=== PATIENT | male | born 1980 | race Caucasian/White ===

== ENCOUNTER 2022-12-16 21:48 | Emergency (ER) | payer OTHER, SELFPAY ==
[2022-12-16 22:02] VITALS: BP 114/78; PULSE 76; RESP 16; TEMP 36; O2SAT 97; BMI 23.0
[2022-12-16 22:44] LABS: COVID-19 Test Negative (Negative); IDNOW Serial# 08D9AD1C; IDNOW Serial# BCCEAD1C; Influenza A Negative (Negative); Influenza B2 Negative (Negative)
--- OUTSIDE RECORDS SUMMARY | 2022-12-16 23:51 | XMS_ITS | Continuity of Care Document ---
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 Name Role Phone Pcp-MD Chiara Blue Primary Care Provider MD Marcelo Magana Emergency Provider Chief Complaint and Reason for Visit Chief Complaint VOMITING NOT FEELING WELL Allergies, Adverse Reactions, Alerts Allergen Type Severity Reaction Last Updated Verified Status ibuprofen Allergy Abdominal Pain April 30, 2021 6:2 0pm Yes Active Social History Smoking Status Status Start Date End Date Date of Observa tion Tobacco smoking consumption unknown (finding) April 30, 2021 11:04pm Observation Status Observation Response Date of Response Lives With Family April 30 11:04pm Additional Data Assigned Sex Male Problems Active Problems Medical Problem Onset Date Status Viral illness Active Medications Medication Status Dose Units Route Directions Qty Days Start Ever e End Date Instructions Ondansetron Active 4 MG PO EVERY 8 HOURS 8 May 01, 2021 6:49am Procedures Procedure Date Performed Status XR chest 1V portable April 30, 2021 7:59pm completed Coronavirus COVID-19 ([facility]YSI) April 30, 2021 c ompleted Relevant Diagnostic Tests and/or Laboratory Data Laboratory Results Test Date/Time Result Interpretation Reference Range Result Comment Performing Site Add-On Test Request April 30, 2021 7:58pm Added test [address] [address] White Blood Count April 30, 2021 6:35pm 10.4 X10 3/uL 4.5-11.[address] [address] Red Blood Count April 30, 2021 6:35pm 4.83 X10 6/uL 4.00-5.[address] [address] Hemoglobin April 30, 2021 6:35pm 15.0 g/dl 13.0-17.[address] [address] Hematocrit April 30, 2021 6:35pm 43.3 % 37.5-50.[address] [address] Mean Corpuscular Volume April 30, 2021 6:35pm 89.6 fl 80.0-100.[address] [address] Mean Corpuscular Hemoglobin April 30, 2021 6:35pm 31.1 pg 27.0-34.[address] [address] Mean Corpuscular Hemoglobin Concent April 30, 2021 6:35pm 34.6 g/dl 31.0-36.[address] [address] Red Cell Distribution Width April 30, 2021 6:35pm 11.6 % 11.5-15.[address] [address] Platelet Count April 30, 2021 6:35pm 186 X10 3/uL 150-[address] [address] Immature Granulocyte % (Auto) April 30, 2021 6:35pm 0.2 % [address] [address] Neutrophils (%) (Auto) April 30, 2021 6:35pm 92.2 % [address] [address] Lymphocytes (%) (Auto) April 30, 2021 6:35pm 4.2 % [address] [address] Monocytes (%) (Auto) April 30, 2021 6:35pm 3.3 % [address] [address] Eosinophils (%) (Auto) April 30, 2021 6:35pm 0.0 % [address] [address] Basophils (%) (Auto) April 30, 2021 6:35pm 0.1 % [address] [address] Immature Granulocyte # (Auto) April 30, 2021 6:35pm 0.02 X10 3/uL 0.00-0.[address] [address] Neutrophils # (Auto) April 30, 2021 6:35pm 9.6 X10 3/uL 1.5-7.[address] [address] Lymphocytes # (Auto) April 30, 2021 6:35pm 0.4 X10 3/uL 1.0-4.[address] [address] Monocytes # (Auto) April 30, 2021 6:35pm 0.3 X10 3/uL 0.0-0.[address] [address] Eosinophils # (Auto) April 30, 2021 6:35pm 0.0 X10 3/uL 0.0-0.[address] [address] Basophils # (Auto) April 30, 2021 6:35pm 0.0 X10 3/uL 0.0-0.[address] [address] Nucleated Red Blood Cells % April 30, 2021 6:35pm 0.0 /100 WBC 0.0-0.[address] [address] Urine Color May 01, 2021 3:14am Yellow Yellow [address] [address] Urine Clarity May 01, 2021 3:14am Clear Clear [address] [address] Urine pH May 01, 2021 3:14am 6.5 5.0-8.[address] [address] Urine Specific Mccall May 01, 2021 3:14am 1.022 1.005-1.[address] [address] Urine Blood May 01, 2021 3:14am Negative mg/dL Negative [address] [address] Urine Protein May 01, 2021 3:14am Negative mg/dL Negative [address] [address] Urine Glucose (UA) May 01, 2021 3:14am Negative mg/dl Negative [address] [address] Urine Ketones May 01, 2021 3:14am Negative mg/dL Negative [address] [address] Urine Nitrate May 01, 2021 3:14am Negative Negative [address] [address] Urine Bilirubin May 01, 2021 3:14am Negative mg/dL Negative [address] [address] Urine Urobilinogen May 01, 2021 3:14am 1.0 E.U./dL Normal [address] [address] Urine Leukocyte Esterase May 01, 2021 3:14am Negative mg/dL Negative [address] [address] Sodium Level April 30, 2021 6:35pm 139 mmol/L 137-[address] [address] Potassium Level April 30, 2021 6:35pm 3.4 mmol/L 3.5-5.[address] [address] Chloride Level April 30, 2021 6:35pm 100 mmol/L 98-[address] [address] Carbon Dioxide Level April 30, 2021 6:35pm 26 mmol/L 23-[address] [address] Anion Gap April 30, 2021 6:35pm 13 mmol/L -[address] [address] Blood Urea Nitrogen April 30, 2021 6:35pm 21 mg/dl -[address] [address] Creatinine April 30, 2021 6:35pm 1.0 mg/dL 0.6-1.[address] [address] Estimated Creatinine Clearance April 30, 2021 6:35pm 90.4 ml/min This value is calculated by Cockcroft Gault Equation using ideal body weight. This result is dependent on an accurate patient height and weight which is obtained from patients medical record. Courtney JoseW. and M.H. Haris. Prediction of creatinine clearance from serum creatinine. Nephron. 1976. 16(1):31-[address] [address] Estimated GFR () April 30, 2021 6:35pm 110 >[address] [address] Estimated GFR (Non- April 30, 2021 6:35pm 95 >[address] [address] BUN/Creatinine Ratio April 30, 2021 6:35pm 21.0 10.0-20.[address] [address] Glucose Level April 30, 2021 6:35pm 106 mg/dL 70-[address] [address] Calcium Level April 30, 2021 6:35pm 9.2 mg/dl 8.6-10.[address] [address] Total Bilirubin April 30, 2021 6:35pm 2.2 mg/dl <1.[address] [address] Direct Bilirubin April 30, 2021 6:35pm < 0.2 mg/dl <0.[address] [address] Aspartate Amino Transf (AST/SGOT) April 30, 2021 6:35pm 26 U/L 15-[address] [address] Alanine Aminotransferase (ALT/SGPT) April 30, 2021 6:35pm 19 U/L 14-[address] [address] Total Protein April 30, 2021 6:35pm 6.9 g/dL 6.4-8.[address] [address] Albumin April 30, 2021 6:35pm 4.7 g/dl 4.0-5.[address] [address] Albumin/Globulin Ratio April 30, 2021 6:35pm 2.1 1.0-2.[address] [address] Alkaline Phosphatase April 30, 2021 6:35pm 62 U/L 40-129 [place] [address] Lipase April 30, 2021 6:35pm 39 U/L 13-60 [place] [address] Microbiology Results Procedure Source Result Collection Date/Time Result Date/Time Result Comment Performing Site Coronavirus COVID-19 (DEYSI) Nares, Both Left & Right April 30, 2021 8:10pm May 01, 2021 4:37am [facility] Clinical Labs [address] [place] [address] Diagnostic Imaging Reports Report Dictated Date/Time Dictated By Status Radiology Report April 30, 2021 9:06pm Seth Seth MD completed [address] [address] Patient Name: Maged Burns Medical Record#: [id number] Address: [address] [place] [address] City/State/Zip: [place] [address]: Randall Haynes MD Insurance: Commercial Other /Age/Sex: 1980/40/M Self Pay Admit/Reg Date: 04/30/[address]: SHARAN Short Location: ED.GS/ PCP: Pcp-Md CHIARA Blue Date of Service: 04/30/21 Order (s): XR chest 1V portable CPT Code: 23447 Report Number: [id number] Reason for Exam: cough, fever CHEST, SINGLE VIEW 7:56 PM INDICATION: cough, fever COMPARISON: None. FINDINGS: AP, portable, upright view of the chest was obtained. The lung el[place] are clear. Heart size and pulmonary vasculature are within normal limits. IMPRESSION: No radiographic evidence of acute cardiopulmonary process. Dictated By: Seth Seth MD 04/30/212105 Signed By: Seth Seth MD 04/30/212105 TD/TT: 04/30/212105Tech: [id number] cc: JEM; JEANINE; WOOCL* Randall Haynes MD; Pcp-MD Su; SHARAN Short Vital Signs Vital Reading Result Reference Range Collection Date/Time Height 167.64 cm April 30, 2021 6:11pm Weight 68.03 kg April 30, 2021 6:11pm Body Temperature 98 [degF] 97.6-99.6 May 012021 7:02am Heart Rate 69 /min 60-90 May 01, 2021 7:02am Respiratory rate 17 /min 12-24 May 012021 7:02am Oxygen saturation by Pulse oximetry 97 % 95-100 May 01, 2021 7:02am BP Systolic 110 mm[Hg] 90-140 May 01, 2021 7:02am BP Diastolic 61 mm[Hg] 60-90 May 01, 2021 7:02am BMI (Body Mass Index) 24.2 kg/m2 ua 2021 6:11pm Advance Directives Advance Directive Response Recorded Date/ Time Advance Directives No April 5:55pm Health Care Proxy No April 30, 2021 5:55pm Insurance Providers Guarantor Maged Edouard s Address [address] [place], [place] [id number] Contact Info. Home Phone: Payer Policy Id Coverage Id Subscriber's Name Subscriber Id Effective Date Expiration Date Commercial Other [id number] Maged Cartagena [id number] Self Pay Self N/A Encounters Encounter Location(s) Arrival/Admit Date Discharge/Depart Date Provider(s) Departed Emergency [facility] ([place] [place]Emergency Dept April 30, 2021 5:53pm May 01, 2021 7:04am null Plan of Treatment Future Tests Future scheduled test information is unavailable Pending Tests Pending diagnostic test information is unavailable Future Visits Future appointment information is unavailable Referrals to Other Providers Reason for Referral Referral Start Date Provider Provider Contact Information Provider Address [facility] Work Phone: [address] [place] [phone] Referral Line [place] Phone: [facility] Future Procedures Future procedure information is unavailable Future Medications Future medication information is unavailable Patient Instructions ED Viral Syndrome (Adult) Goals Acute Goals You were seen here for vomit ing and fevers and cough. Your workup here was reassuring. Therefore, please follow-up with your primary care doctor in the next several days. Please take Zofran as needed for nausea. If you experience new or worsening symptoms, please return to the ER.
--- OUTSIDE RECORDS SUMMARY | 2022-12-16 23:51 | XMS_ITS | Continuity of Care Document ---
Author Name Unknown Address [address] [place] [address] Phone [facility] Address [address] [place] [address] Phone Care Team Providers Care Leasing Associate Name Role Phone Pcp-Su, MD Lacey Primary Care Provider Unavailcody jimenez Pcp-MD Chiara Blue Family Provider Unavailable MD Alfredo Phillips Emergency Provider Chief Complaint and Reason for Visit Chief Complaint NECK, SHOULDER PAIN Allergies, Adverse Reactions, Alerts Allergen Type Severity Reaction Last Updated Verified Status ibuprofen Allergy Abdominal Pain June 14, 2021 7:51pm Yes Active Social History Smoking Status Status Start Date End Date Date of Observa tion Tobacco smoking consumption unknown (finding) April 30, 2021 11:04pm Observation Status Observation Response Date of Response Lives With Family May 01 12:04am Additional Data Assigned Sex Male Problems Active Problems Medical Problem Onset Date Status Neck muscle strain Active Inactive/Resolved Problems Medical Problem Onset Date Status Viral illness Resolved Medications Medication Status Dose Units Route Directions Qty Days St art Date End Date Instructions Ondansetron Active 4 MG PO EVERY 8 HOURS 8 May 01, 2021 7:49am Acetaminophen Active 1 - 2 TAB PO EVERY 6 HOURS 30 June 14, 2021 10:44pm Diazepam Active 5 MG PO THREE TIME S A DAY 15 June 14, 2021 10:44pm Vital Signs Vital Reading Result Reference Range Collection Date/Time Height 167.64 cm June 14 7:52pm Weight 70.30 kg June 14 7:52pm Body Temperature 98.1 [degF] 97.6-99.6 June 14, 2021 7:52pm Heart Rate 73 /min 60-90 June 14 9:32pm Respiratory rate 16 /min 12-24 June 14, 2021 9:32pm Oxygen saturation by Pulse oximetry 97 % 95-100 June 14, 2021 9:3 2pm BP Systolic 138 mm[Hg] 90-140 June 14 9:32pm BP Diastolic 90 mm[Hg] 60-90 June 14 9:32pm BMI (Body Mass Index) 25.0 kg/m2 June 14, 2021 7:52pm Advance Directives Advance Directive Response Recorded Date/ Time Advance Directives No April 6:55pm Health Care Proxy No April 30, 2021 6:55pm Advance Directives No June 14 7:44pm Health Care Proxy No June 14 7:44pm Insurance Providers Guarantor Maged Min Edouard s Address [address] [facility] [address] Contact Info. Home Phone: Payer Policy Id Coverage Id Subscriber's Name Subscriber Id Effective Date Expiration Date Commercial Other [id number] Magedtanya Cartagena [id number] [facility] HealthNet (Medicaid) [id number] Maged Copeland Mitzi [id number] Self Pay Self N/A Encounters Encounter Location(s) Arrival/Admit Date Discharge/Depart Date Provider(s) Departed Emergency [facility]-Emergency Dept June 14, 2021 7:43pm June 14, 2021 11:08pm null Plan of Treatment Future Tests Future scheduled test information is unavailable Pending Tests Pending diagnostic test information is unavailable Future Visits Future appointment information is unavailable Referrals to Other Providers Reason for Referral Referral Start Date Provider Provider Contact Information Provider Address [facility] Work Phone: [address] [place] [phone] Referral Line [facility] Phone: [facility] Pcp-Md CHIARA Blue Future Procedures Future procedure information is unavailable Future Medications Future medication information is unavailable Patient Instructions ED Viral Syndrome (Adult) Goals Acute Goals You were seen in the emergen cy department due to pain in the back left side of your neck. There is no tenderness over the bones or evidence of infection. You likely have a strained muscle. Please take the prescribed medications and continue to monitor how you are feeling. Please come back to the emergency department for any further emergent concerns.
[2022-12-17] VITALS: BP 125/84; PULSE 67; RESP 16; TEMP 36.8; O2SAT 98
--- NOTE | 2022-12-17 00:05 | ED.GENADULT ---
HPI - General Adult General Chief complaint: General Medical Stated complaint: flu like symptoms Time Seen by Provider: 12/16/22 23:39 Source: patient, RN notes reviewed and old records reviewed Mode of arrival: ambulatory Limitations: no limitations History of Present Illness HPI narrative: 42-year-old male presents for evaluation of headache, body aches. He reports his symptoms worsened yesterday He denies any coughing He was reportedly seen at [facility] earlier today Denies any chest pain, shortness of breath abdominal pain, nausea vomiting Denies any known sick contacts Related Data Allergies Allergy/AdvReac Type Severity Reaction Status Date / Time No Known Allergies Allergy Verified 12/16/22 22:02 Review of Systems Constitutional: Constitutional: Reports body ache(s), Denies chills, Denies fever(s), Reports headache(s) and Reports malaise Eyes: Eyes: Denies blurry vision ENT: Reports headache(s), Reports sinus pressure and Denies sore throat Cardiovascular: Cardiovascular: Denies chest pain and Denies dyspnea Respiratory: Respiratory: Denies dyspnea Gastrointestinal: Gastrointestinal: Denies abdominal pain, Denies nausea and Denies vomiting Musculoskeletal: Musculoskeletal: Denies back pain and Reports myalgias Neurologic: Reports headache(s) PMFSH Social History Social History Advance Directives: No Advance Directives Information Provided: Yes Physical Exam ED Vital Signs: Vital Signs - 24 hr 12/16/22 22:02 12/17/22 00:00 Temperature 96.8 F 98.2 F Pulse Rate 76 67 Respiratory Rate 16 16 Blood Pressure 114/78 125/84 Pulse Oximetry 97 98 Oxygen Delivery Method Room Air Room Air BMI result Body Mass Index 23.0 Const General: healthy appearing, comfortable, no acute distress, alert and awake Nutritional Appearance: well nourished Orientation/consciousness: patient oriented x3 HENMT Head: Yes normocephalic and Yes atraumatic Eyes Eyelids: Yes eyelids normal Conjunctivae: conjunctivae normal Sclerae: sclerae normal Corneas: corneas normal Pupils: Equal, round and reactive pupils present EOM: EOMs intact bilaterally Neck Neck: Yes full ROM Resp Effort & Inspection: normal respiratory effort, able to speak in complete sentences, no audible wheezes and not labored Auscultation: clear to auscultation bilaterally Cardio Rate: regular rate Rhythm: regular rhythm GI Inspection: No distended Palpation (GI): Soft to palpation, not firm, nontender, no guarding and not rigid Skin General skin exam: no rashes or lesions noted and elasticity normal Neuro General: patient oriented x3 Cranial nerves: Yes Equal, round and reactive pupils present and Yes Bilaterally intact EOM present Cognition (Neuro): normal cognition Extrem Other: Moving all extremities well without any obvious deformities Medical Decision Making Medical Decision Making MDM Narrative: 42-year-old male presents for evaluation of upper respiratory symptoms including headache, congestion, stuffy nose. He reports body aches. His vital signs on arrival are all within normal limits. He is quite well appearing. Lungs are clear to auscultation. Symptoms most consistent with viral etiology. He tested negative for COVID, influenza, RSV. He will be discharged with symptomatic care only Differential Diagnosis Differential Diagnoses: The differential diagnosis associated with the presentation includes Upper respiratory infection Viral syndrome COVID-19 Influenza Lab Data Labs: Lab Results 12/16/22 Range/Units 22:18 COVID-19 ([place]) Negative (Negative) COVID-19 Clin Com See Note Influenza Type A ([facility]) Negative (Negative) Influenza Type B ([facility]) Negative (Negative) Influenza A & B Note See Note Discharge Plan Discharge Clinical Impression: Acute viral syndrome Patient Disposition: Home, Self-Care Instructions: Viral Syndrome (ED) Additional Instructions: You tested negative for COVID, influenza and RSV Your symptoms are likely related to another virus Use ibuprofen/Tylenol for fevers and body aches Return for new or worsening symptoms
[2022-12-17] MEDS: Ibuprofen 800 MG TABLET PO (01:00)
--- NOTE | 2022-12-17 01:06 | PC.NURSE ---
This RN only reviewed discharge instruction with pt. pt verbalized understanding. Medicated at discharge. Pt assessed and discharged by provider.
== END 2022-12-17 01:07 | disposition home or self-care (01) ==
PROVIDERS: Emergency Provider Emergency Medicine
DX: B34.9 Viral infection, unspecified (principal); R51.9 Headache, unspecified; Z20.822 Contact with and (suspected) exposure to COVID-19
CPT/HCPCS: 87502; 87635; 99283